=== PATIENT | male | born 2000 | race Caucasian/White ===

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

== ENCOUNTER 2020-07-12 20:58 | Emergency (ER) | payer OTHER ==
--- NOTE | 2020-07-12 21:18 | ED Physician Documentation ---
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 denies any other complaints. patient is right hand dominant. reports tetanus is up to date. denies any other complaints. Review of Systems Constitutional: reports: Reviewed and negative Eyes: reports: Reviewed and negative Ears: reports: Reviewed and negative Nose: reports: Reviewed and negative Throat: reports: Reviewed and negative Cardiac: reports: Reviewed and negative Respiratory: reports: Reviewed and negative GI: reports: Reviewed and negative : reports: Reviewed and negative Skin: reports: Laceration (s) Musculoskeletal: reports: Other (left finger tip avulsion/laceration) Neurologic: reports: Reviewed and negative Psychiatric: reports: Reviewed and negative Endocrine: reports: Reviewed and negative Immunocompromised: reports: Reviewed and negative PD PAST MEDICAL HISTORY - Allergies Allergies/Adverse Reactions: Allergies Allergy/AdvReac Type Severity Reaction Status Date / Time No Known Drug Allergies Allergy Verified 07/12/20 21:06 PD ED PE NORMAL - Vitals Vital signs reviewed: Yes - General General: Alert and oriented X 3, No acute distress - HEENT HEENT: PERRL - Neck Neck: Supple, no meningeal sign - Cardiac Cardiac: RRR, No murmur - Respiratory Respiratory: Clear bilaterally - Abdomen Abdomen: Normal bowel sounds, Soft, Non tender, Non distended - Derm Derm: Warm and dry, Other (left fifth finger guerrero distal to the DIP avulsion/laceration, no involvement of the nail, nv intact, silt, compartments soft. no tendon involvement. ) - Extremities Extremities: No deformity, Other (left fifth finger guerrero distal to the DIP avulsion/laceration, no involvement of the nail, nv intact, silt, compartments soft. no tendon involvement. full rom on active/passive rom at all dip/pip/mcp.) - Neuro Neuro: Alert and oriented X 3 - Psych Psych: Normal mood, Normal affect Results - Vitals Vitals: Vital Signs - 24 hr 07/12/20 07/12/20 07/12/20 21:06 21:10 22:03 Temperature 37.2 C 37.2 C Heart Rate 96 96 98 Respiratory 16 16 16 Rate Blood Pressure 156/96 H 156/96 H 134/82 H O2 Saturation 100 100 98 Oxygen O2 Source Room air Procedures - Laceration (location) Finger left Palmar Length in cm: 1 Wound type: Other (tissue avulsion) Neurovascular status: Sensory intact, Motor intact, Vascular intact Tendon involvement: Tendon intact Wound Preparation: Irrigated copiously NS, To the base, Other (no foreign body identified, bleeding controlled with pressure) Skin layer closure: Other (bacitracin and pressure dressing applied.) Other: Patient tolerated well, No complications, Neurovascular intact, Tetanus UTD, Other Complexity: Simple PD MEDICAL DECISION MAKING - ED course Complexity details: reviewed results, re-evaluated patient, considered differential (finger tip avulsion/laceration. ), d/w patient, other (L&I paperwork completed.) Departure - Departure Disposition: 01 Home, Self Care Clinical Impression: Avulsion, finger tip Qualifiers: Encounter type: initial encounter Qualified Code(s): S61.209A - Unspecified open wound of unspecified finger without damage to nail, initial encounter Condition: Stable Instructions: ED Laceration Hand Follow-Up: SHANE HORTON, MSN, [employer] FACULTY ASSISTANT [Primary Care Provider] - Within 1 week Comments: Keep wound clean and protected at all times. Apply topical antibiotic such as Neosporin 1-2 times daily and keep finger protected with a bandage. Follow-up with your primary care provider within the next 7 to 10 days for repeat examination and repeat x-ray. Discharge Date/Time: 07/12/20 22:23
[2020-07-12] MEDS ORDERED: BACITRACIN ZINC OINT 1 PACKET TOP STA (21:19)
[2020-07-12] MEDS ORDERED: BACITRACIN ZINC OINT 1 PACKET TOP ONE (21:32)
--- NOTE | 2020-07-12 21:44 | XRAY Report ---
PROCEDURE: Hand 2 View LT INDICATIONS: hand injury TECHNIQUE: 2 views of the hand(s) acquired. COMPARISON: None FINDINGS: Bones: No fractures or dislocations. No suspicious bony lesions. Soft tissues: No suspicious soft tissue calcifications. Distal fifth digit soft tissue laceration. IMPRESSION: Fifth digit soft tissue laceration. No visualized acute fracture or dislocation. However, occult inju ry cannot be excluded. Recommend short interval imaging follow-up in 7-10 days as clinically indicate d for additional evaluation. Reviewed by: Elizabeth Cornejo MD on 07/12/2020 9:43 PM PDT Approved by: Elizabeth Cornejo MD on 07/12/2020 9:43 PM PDT Station ID: [id number]
[2020-07-12 22:04] VITALS: BP 134/82
== END 2020-07-12 22:23 | disposition home or self-care (01) ==
LOC: ED 20:58
DX: S61.217A Laceration without foreign body of left little finger without damage to nail, initial encounter (principal); W26.0XXA Contact with knife, initial encounter; Y93.G1 Activity, food preparation and clean up; Y99.0 Civilian activity done for income or pay
CPT/HCPCS: 12001; 73120; 99282; 99283; A9270

== ENCOUNTER 2020-12-23 14:10 | Emergency (ER) | payer BC, OTHER ==
[2020-12-23 14:16] VITALS: BP 149/71
[2020-12-23] MEDS ORDERED: BACITRACIN ZINC OINT 1 PACKET TOP STA (14:45)
[2020-12-23] MEDS ORDERED: BUFFERED LIDOCAINE 10 ML SYRINGE SUBQ STA (14:45)
--- NOTE | 2020-12-23 15:22 | ED Physician Documentation ---
History of Present Illness - Stated complaint Stated Complaint: L HAND LAC - Chief complaint Chief Complaint: Laceration - Additonal information Additional information: 20-year-old male presents the emergency department for evaluation of a la ceration at the base and lateral/radial of his index finger. He was cutting an apple with a butter knife. Patient is right-hand dominant. Reports tetanus as up-to-date. Review of Systems Constitutional: reports: Reviewed and negative Ears: reports: Reviewed and negative Cardiac: reports: Reviewed and negative Respiratory: reports: Reviewed and negative GI: reports: Reviewed and negative : reports: Reviewed and negative Skin: reports: Laceration (s) (right index finger) Musculoskeletal: reports: Reviewed and negative Neurologic: reports: Reviewed and negative PD PAST MEDICAL HISTORY - Past Medical History Cardiovascular: None Respiratory: None Neuro: None Endocrine/Autoimmune: None GI: None : None HEENT: None Psych: None Musculoskeletal: None Derm: None - Past Surgical History Past Surgical History: Yes General: Appendectomy - Present Medications Home Medications: Ambulatory Orders Medication Instructions Recorded Confirmed No Known Home Medications 12/23/20 12/23/20 - Allergies Allergies/Adverse Reactions: Allergies Allergy/AdvReac Type Severity Reaction Status Date / Time No Known Drug Allergies Allergy Verified 12/23/20 14:13 - Social History Does the pt smoke?: No Smoking Status: Never smoker Does the pt drink ETOH?: No Does the pt have substance abuse?: No - Immunizations Immunizations are current?: No - POLST Patient has POLST: No PD ED PE EXPANDED - General General: Alert, No acute distress - Extremities Extremities: Left finger(s) (3 cm laceration lateral radial side index finger just above MCP. Distal sensation preserved. Normal flexion and extension of digit against resistance in all planes.) Results - Vitals Vitals: Vital Signs - 24 hr 12/23/20 14:13 Temperature 36.6 C Heart Rate 94 Respiratory 16 Rate Blood Pressure 149/71 H O2 Saturation 97 Oxygen O2 Source Room air Procedures - Laceration (location) left indec finger Length in cm: 3 Wound type: Irregular, Into subcut fat, Into muscle, Clean Neurovascular status: Sensory intact, Motor intact, Vascular intact Tendon involvement: Tendon intact Anesthesia: Lidocaine 1% Wound preparation: Betadine, Irrigated copiously NS, Wound explored, To the base Skin layer closure: Nylon, Size #-0 - enter number (4), Sutures - enter # (6) Other: Patient tolerated well, No complications, Neurovascular intact, Dressing applied, Tetanus UTD PD MEDICAL DECISION MAKING - ED course Complexity details: reviewed results, re-evaluated patient, considered differential, d/w patient ED course: 20-year-old male presents the emergency department for evaluation of a 3 cm laceration on the lateral base of his left index finger sustained when cutting an apple with a butter knife. Tetanus is up-to-date. Wound was easily approximated. On exam no findings consistent with neurovascular damage or tendon injury. Routine wound care and emergent return precautions discussed. Departure - Departure Disposition: 01 Home, Self Care Clinical Impression: Finger laceration Qualifiers: Encounter type: initial encounter Finger: index finger Damage to nail status: without damage Foreign body presence: without foreign body Laterality: left Qualified Code(s): S61.211A - Laceration without foreign body of left index finger without damage to nail, initial encounter Condition: Stable Record reviewed to determine appropriate education?: Yes Instructions: ED Laceration Hand Comments: Your suture should be removed in 7 to 10 days. In 24 hours you may remove the dressing wash gently with warm soap and water, apply any antibiotic ointment and a simple bandage. Your tetanus is up-to-date. Please attempt to keep your wound clean and dry. Do not submerge it in dirty dishwater or bath water. Return to the emergency department if you have any concerns of infection such as redness, fevers milky drainage increased pain.
== END 2020-12-23 15:29 | disposition home or self-care (01) ==
LOC: ED 14:10
DX: S61.211A Laceration without foreign body of left index finger without damage to nail, initial encounter (principal); W26.0XXA Contact with knife, initial encounter; Y93.G1 Activity, food preparation and clean up
CPT/HCPCS: 12002; 99282; A9270

== ENCOUNTER 2021-01-01 15:25 | Emergency (ER) | payer BC ==
[2021-01-01 15:46] VITALS: BP 131/63
--- NOTE | 2021-01-01 15:57 | ED Physician Documentation ---
PD HPI WOUND RECHECK - Stated complaint Stated Complaint: STITCHES REMOVAL - Chief complaint Chief Complaint: Wound - Histroy obtained from History obtained from: Patient - History of Present Illness Timing - onset: How many days ago (10) Pain level max: 0 Pain level now: 0 Associated symptoms: No: Fever, Redness, Swelling, Drainage, Pain - Additional information Additional information: Here for suture removal from left index finger laceration. Review of Systems Constitutional: denies: Fever PD PAST MEDICAL HISTORY - Past Medical History Past Medical History: No Cardiovascular: None Respiratory: None Neuro: None Endocrine/Autoimmune: None GI: None : None HEENT: None Psych: None Musculoskeletal: None Derm: None - Past Surgical History Past Surgical History: Yes General: Appendectomy - Present Medications Home Medications: Ambulatory Orders Medication Instructions Recorded Confirmed No Known Home Medications 12/23/20 01/01/21 - Allergies Allergies/Adverse Reactions: Allergies Allergy/AdvReac Type Severity Reaction Status Date / Time No Known Drug Allergies Allergy Verified 01/01/21 15:46 - Social History Does the pt smoke?: No Smoking Status: Never smoker Does the pt drink ETOH?: No Does the pt have substance abuse?: No - Immunizations Immunizations are current?: No - POLST Patient has POLST: No PD ED PE NORMAL - Vitals Vital signs reviewed: Yes - General General: Alert and oriented X 3, No acute distress - Derm Derm: Warm and dry - Extremities Extremities: Other (Well-healed laceration to the base of the left index finger. No signs of infection. No dehiscence) - Neuro Neuro: Alert and oriented X 3 Results - Vitals Vitals: Vital Signs - 24 hr 01/01/21 15:30 Temperature 37.2 C Heart Rate 84 Respiratory 16 Rate Blood Pressure 131/63 H O2 Saturation 98 Oxygen O2 Source Room air PD MEDICAL DECISION MAKING - ED course Complexity details: considered differential, d/w patient ED course: Sutures removed by nursing staff. All sutures removed. Tolerated well. No complications. Discussed wound care and minimization of scarring. This document was made in part using voice recognition software. While efforts are made to proofread this document, sound alike and grammatical errors may occur. Departure - Departure Disposition: 01 Home, Self Care Clinical Impression: Visit for suture removal Condition: Good Instructions: ED Wound Check Sutr Remove No Infec Follow-Up: SHANE HORTON, MSN, DIE TRY OUT WORKER [Primary Care Provider] - As Needed Comments: Keep the wound clean. Return if you worsen. The sutures were removed today
== END 2021-01-01 16:02 | disposition home or self-care (01) ==
LOC: ED 15:25
DX: Z48.02 Encounter for removal of sutures (principal)
CPT/HCPCS: 99281; 99282

== ENCOUNTER 2021-01-15 16:05 | Outpatient (CLI) | payer BC ==
--- NOTE | 2021-01-15 16:31 | SLEEP CARE CONSULTATION ---
Information from patient questionnaire entered by Marshall Chase. I have reviewed and concur with the information entered by Marshall Chase. This document represents the service I personally performed and the decisions made by me, April Malave ARNP. History of Present Illness Service Date and Time: 01/15/2021 1605 Reason for follow up: annual (Last seen 12/2019, no CPAP) Prior sleep studies: No HPI additional information: I had the pleasure of seeing RYAN JACKSON today regarding the possibility of him having a sleep disorder. His current complaints are snoring, observed pauses in breathing, unrefreshed sleep, some frequent night awakenings but not every night, and excessive sleepiness during the day. He has had some girlfriends tell him that he will stop breathing. He does not sleep well for last 2 years. He was consulted for trying to get a sleep study and he was unable to complete it. He and his family got Covid and the clinic closed for a time. He has tried to improve his sleep hygiene but his sleep quality does not seem to be improving. He has problems remembering things. He sometimes has trouble focusing on things but usually it is fine. Sleep Study - Results Prior sleep studies: No Subjective Initial [place] Sleepiness Scale score: 8 Current [place] Sleepiness Scale score: 9 Allergies and Home Medications Drug allergies reviewed: Yes (NKDA) Home medication list reviewed: Yes (Lexipro) Review of Systems Review of systems same as previous: No (Depression) Physical Exam Heart Rate: 86 O2 Saturation: 98 Height: 6 ft 1 in Weight: 295 lb Body Mass Index: 38.9 BMI Classification: Obese Impression and Plan 1. Suspected Obstructive Sleep Apnea-Hypopnea Syndrome, as suggested by a history of loud and irregular snoring, observed cessation of breath while asleep, frequent awakening during the night, unrefreshed sleep, cognitive impairment, and excessive daytime sleepiness. He was unable to get his sleep study last year due to complications of Covid pandemic. I recommend proceeding to polysomnography to confirm the diagnosis and to assess severity. I informed the patient of what the sleep studies involve and after some discussion, obtained agreement to proceed. The pathophysiology of obstructive sleep apnea- hypopnea syndrome was discussed with the patient and health risks of cardiovascular and cerebrovascular disease if not treated. Risks of drowsy driving discussed in detail and patient advised to avoid long distance driving and to drum puller at the first sign of drowsiness. Patient agreed to plan. * Schedule polysomnography +- manual CPAP titration study and return in 1-2 weeks after the study to discuss result and initiate therapy. * Avoid long distance driving or driving when feeling sleepy. * Avoid alcohol, sedative and muscle relaxant around bedtime. * Attempt to lose weight. * Review instructions provided by trained office staff on how to prepare for the sleep study. * Return for follow-up after sleep study completed. Counseling Topics: Weight loss health impact Visit Type: In Office Time Spent with Patient (minutes): 20 Provider Statement: I spent 100% of the Face to Face Visit with the patient with greater than 50% spent counseling the patient and coordination of care.
== END 2021-01-15 16:06 | disposition home or self-care (01) ==
LOC: SC 16:05
PROVIDERS: ATTEND Nurse Practitioner Family
DX: G47.10 Hypersomnia, unspecified (principal); R06.81 Apnea, not elsewhere classified; G47.8 Other sleep disorders; R41.89 Other symptoms and signs involving cognitive functions and awareness; R06.83 Snoring; E66.9 Obesity, unspecified; Z68.38 Body mass index [BMI] 38.0-38.9, adult
CPT/HCPCS: 99212; 99213

== ENCOUNTER 2021-03-02 10:00 | Outpatient (CLI) | payer BC | END 2021-03-02 10:01 | disposition home or self-care (01) | LOC: SC 10:00 | PROVIDERS: ATTEND Nurse Practitioner Family | DX: G47.33 Obstructive sleep apnea (adult) (pediatric) (principal); R09.02 Hypoxemia | CPT/HCPCS: 95806 ==

== ENCOUNTER 2021-03-19 10:37 | Outpatient (CLI) | payer BC ==
--- NOTE | 2021-03-19 11:01 | SLEEP CARE CONSULTATION ---
Information from patient questionnaire entered by Becky Marrero. I have reviewed and concur with the information entered by Becky Marrero. This document represents the service I personally performed and the decisions made by , April Malave ARNP. History of Present Illness Service Date and Time: 03/19/2021 1037 Initial [place] Sleepiness Scale score: 8 Current [place] Sleepiness Scale score: 12 Additional HPI information: RYAN JACKSON returns for follow up and results of the recently performed home sleep study. I explained the pathophysiology behind obstructive sleep apnea. We then spent quite a bit of time discussing different treatment options. For mild obstructive sleep apnea, surgery and oral appliance are alternatives to nasal CPAP therapy but in moderate or severe cases, nasal CPAP is the most effective a nd reliable treatment. Because apnea is primarily in supine position, then positional management therapy could be effective. Methods discussed such as positioning with pillows, using a T-shirt with tennis balls in the back, and shown commercial products that have a pillow format on back to prevent supine sleep. I reviewed the impact of weight changes on sleep apnea and strongly recommended losing weight. After some discussion, the patient opted to go with the nasal CPAP therapy. Nasal autoCPAP set at 4-15 cmH20 will be ordered with rationale explained. A manual titration study will be ordered if unable to find optimal pressure with office adjustments. I explained how CPAP machine works with sample devices [employer]pir[employer] Dreamstation and [employer] [id number] and what to expect when using the machine. Using CPAP every night in order to get used to it was emphasized. Patient advised to put CPAP mask on before getting into bed so as not to fall asleep without CPAP. To assist acclimation to CPAP use, it could also be used for a short time during day while reading or watching TV. The patient was instructed to call the CPAP supplier to discuss any mechanical problem that may occur. If the mask given is uncomfortable or is difficult to keep on through the night even with adjustment, contact the CPAP supplier as many will replace with another mask style if notified before 30 days. If snoring or perceives is not getting enough air or too much air from the machine, notify this office. AAS patient education PAP tips \reviewed and given to patient. Patient does not drink alcohol. Patient was cautioned about risks of drowsy driving until sleepiness symptoms resolve. Sleep Study - Results Type of Sleep Study: Home sleep study Prior sleep studies: No Polysomnography/Home Sleep Study results: Physician Impression: The quality of the study is good. The length of the study is adequate (> 240 minutes). Please also see the tabulated and graphic data. 1. Obstructive Sleep Apnea-Hypopnea (ICD-10 G47.33), mild, with an AHI of 10.3 /hr and gary SaO2 of 68%. During the study, the patient had 41 apneas (41 obstructive, 0 central, 0 mixed) and 26 hypopneas. The longest episode lasted 57.5 seconds. The respiratory events occurred independently of sleep stage and body position (supine AHI was 10.7 and non-supine, 10.03). 2. Hypoxemia (ICD-10 R09.02), moderate, with the lowest oxygen saturation of 68 % and 21.5 minutes with SaO2 under 90%. Baseline oxygen saturation was normal (Average oxygen saturation was 95%). 3. Tachycardia, with maximum recoded heart rate of 123 beats per minute. Allergies and Home Medications Home medication list reviewed: Yes (Venlefaxine, hydroxizine) Review of Systems Review of systems same as previous: Yes (no changes) Physical Exam Heart Rate: 96 O2 Saturation: 100 Height: 6 ft 1 in Weight: 302 lb Body Mass Index: 39.8 BMI Classification: Obese Impression and Plan 1. Obstructive Sleep Apnea-Hypopnea Syndrome, mild, with lowest oxygen saturation of 68%. Obviously this is the cause of the patients symptoms of unrefreshed sleep, and excessive daytime sleepiness. Positive pressure therapy could benefit his depression. As mentioned above, the patient will be started on nasal autoCPAP therapy with pressure set at 4-15 cmH2O. Compliance guidelines also reviewed. A copy of compliance guidelines will be given for reference at check out. 2. Hypoxemia (ICD-10 R09.02), moderate, with the lowest oxygen saturation of 68 % and 21.5 minutes with SaO2 under 90%. His baseline oxygen saturation was normal with an average oxygen saturation of 95%. 3. Tachycardia, with maximum recorded heart rate of 123 beats per minute. * Nasal auto CPAP therapy, pressure at 4-15 cm H2O. * Attempt to lose weight. * Avoid alcohol consumption near bedtime. * The patient is again cautioned about driving until sleepiness completely resolves. * Return one month after CPAP obtained. I will assess response to therapy and compliance at that time. Counseling Topics: Weight loss health impact Visit Type: In Office Time Spent with Patient (minutes): 20 Provider Statement: I spent 100% of the Face to Face Visit with the patient with greater than 50% spent counseling the patient and coordination of care.
== END 2021-03-19 10:38 | disposition home or self-care (01) ==
LOC: SC 10:37
PROVIDERS: ATTEND Nurse Practitioner Family
DX: G47.33 Obstructive sleep apnea (adult) (pediatric) (principal); R09.02 Hypoxemia; R00.0 Tachycardia, unspecified; E66.9 Obesity, unspecified; Z68.39 Body mass index [BMI] 39.0-39.9, adult
CPT/HCPCS: 99212; 99213

== ENCOUNTER 2022-12-21 10:30 | Outpatient (CLI) | payer OTHER | END 2022-12-21 10:31 | disposition home or self-care (01) | LOC: LAB.N 10:30 | PROVIDERS: ATTEND Nurse Practitioner Family | DX: F90.0 Attention-deficit hyperactivity disorder, predominantly inattentive type (principal); Z79.899 Other long term (current) drug therapy | CPT/HCPCS: 80307; 80349; 81599 ==